=== PATIENT | female | born 1975 ===

== ENCOUNTER 2020-09-07 10:15 | Outpatient (CLI) | payer OTHER, SELFPAY ==
[2020-09-07 18:58] LABS: Hematocrit 40.2 % (37.0-47.0); Hemoglobin 12.2 g/dL (12.0-15.0); Mean Corpuscular HGB Conc 30.3 g/dl (32-36); Mean Corpuscular Hemoglobin 26.8 pg (26-34); Mean Corpuscular Volume 88.4 fl (80-100); Mean Platelet Volume 9.5 fl (7.4-10.4); Platelet Count Result 303 k/mm3 (150-375); Red Blood Count 4.55 M/mm3 (4.2-5.4); Red Cell Distribution Width 14.3 % (11.5-14.5); White Blood Count 4.4 K/mm3 (4.5-10.0)
[2020-09-07 19:39] LABS: Vitamin D 25 Hydroxy 28.9 ng/mL
== END 2020-09-07 10:16 | disposition home or self-care (01) ==
LOC: ANHBWCLAB 10:19
PROVIDERS: PCP Family Medicine; Visit Provider Obstetrics & Gynecology
DX: N92.1 Excessive and frequent menstruation with irregular cycle (principal); R53.83 Other fatigue
CPT/HCPCS: 36415; 82306; 84443; 85027